=== PATIENT | female | born 1960 | race Caucasian/White ===

== ENCOUNTER 2019-03-21 07:56 | Outpatient (CLI) | payer OTHER, SELFPAY ==
--- NOTE | 2019-03-21 14:30 | DI.MAMMO_ITS ---
EXAM: MG MAMMO SCREENING CLINICAL HISTORY: screening mammogram,z12.31 TECHNIQUE: Bilateral full field digital CC and MLO mammographic images were obtained with 3D tomosyn thesis and utilizing computer aided detection (CAD). COMPARISON: Available for comparison. FINDINGS: Masses/Architectural Distortion: None seen. There is a biopsy clip again seen in the left breast. Microcalcifications: No suspicious pleomorphic-type are seen. Skin Thickening/Nipple Retraction: None. IMPRESSION: 1. No significant interval change with no specific features of malignancy noted. 2. Unless there is more urgent need, screening mammography is recommended, as per [place] guidelines. ACR BI-RAD Category- 1 Negative Breast Density - Category B - Scattered areas of fibroglandular density A negative radiographic report should not delay biopsy if a dominant or clinically suspicious mass is present. Up to ten percent of cancers are not identified on mammography. A negative report may reinforce clinical impression. Adenosis and dense breasts may obscure an underlying neoplasm. False positive reports average 6 to 10%. Patient will receive a letter notifying them of these results.
== END 2019-03-21 08:16 ==
PROVIDERS: PCP Family Medicine; Visit Provider Family Medicine
DX: Z12.31 Encounter for screening mammogram for malignant neoplasm of breast (principal)
CPT/HCPCS: 77063; 77067

== ENCOUNTER 2019-04-01 01:36 | Outpatient (CLI) | payer OTHER, SELFPAY ==
[2019-04-01 16:02] LABS: HCT 38.6 % (36.0-46.0); HGB 12.7 g/dL (12.0-15.5); Mean Corp. HGB Concentration 32.9 g/dL (32.0-36.0); Mean Corpuscular Hemoglobin 30.3 pg (27.0-33.0); Mean Corpuscular Volume 92.1 fL (80-95); Mean Platelet Volume 9.8 fL (8.0-11.0); Platelet Count 284 x1000/uL (130-400); RBC 4.19 m/cumm (4.00-5.20); RBC Distribution Width 12.5 % (11.7-14.6); White Blood Cell Count 5.42 k/cumm (4.4-10.8)
[2019-04-01 18:23] LABS: ALT 38 U/L (14-59); AST 35 U/L (15-37); Albumin 4.2 g/dL (3.4-5.0); Alkaline Phosphatase 79 U/L (46-116); Anion Gap 11.6 mmol/L (3-11); BUN 24 mg/dL (7-18); Bilirubin, Total 0.6 mg/dL (0.2-1.0); CO2 24.4 mmol/L (21.0-32.0); CREATININE 1.06 mg/dL (0.55-1.02); Calcium 8.8 mg/dL (8.5-10.1); Chloride 104 mmol/L (98-107); Estimated GFR 53.24 (mL/min/1.73m2); Glucose 94 mg/dL (74-106); Sodium 140 mmol/L (136-145)
== END 2019-04-01 01:56 ==
PROVIDERS: PCP Family Medicine; Visit Provider Family Medicine
DX: Z00.00 Encounter for general adult medical examination without abnormal findings (principal); Z13.0 Encounter for screening for diseases of the blood and blood-forming organs and certain disorders involving the immune mechanism; Z13.228 Encounter for screening for other metabolic disorders
CPT/HCPCS: 36415; 80053; 85027

== ENCOUNTER 2019-07-15 15:31 | Outpatient (REF) | payer OTHER, SELFPAY ==
--- NOTE | 2019-07-15 14:00 | PAPFT_PTH ---
PATIENT: Nhung Quezada LOC: [facility] U#:[id number] AGE/SX: 58/F ROOM: RE07/15/[address]: MARITA Hill : 1960 BED: DIS: 07/15/2019 SPEC #: [id number] RECD: 07/15/19 17:49 STATUS: RENARD REQ #: [id number] MARIANNE: 07/15/19 14:[address]: Gaby Aquino DEPT: [facility] Cytology RECD BY: Cesia Ervin ENTERED: 07/15/19 17:50 SP TYPE: PAPFT OTHR DR: Isael Isabel MD Tissues: 1 - CX/ENDOCX FOR PAP SMEARS Procedures: PAP THIN PREP/UVM Screening HPV DNA PROBE Comments: [id number]
== END 2019-07-15 15:51 ==
LOC: LBN 15:31
PROVIDERS: PCP Family Medicine; Visit Provider Nurse Practitioner Family
DX: Z12.4 Encounter for screening for malignant neoplasm of cervix (principal); Z11.51 Encounter for screening for human papillomavirus (HPV)
CPT/HCPCS: 88142; 87624

== ENCOUNTER 2020-08-10 01:21 | Outpatient (CLI) | payer OTHER, SELFPAY ==
--- NOTE | 2020-08-10 08:00 | DI.RAD_ITS ---
EXAM: XR FOOT LT COMPLETE CLINICAL HISTORY: Swelling left 1st MTP joint,PAIN LT GREAT TOE,M79.675 TECHNIQUE: COMPARISON: No exams were available for comparison FINDINGS: Three views of the foot were obtained. There is severe narrowing of the cartilaginous joint space of the 1st MTP joint with moderate subchondral sclerosis and prominent marginal osteophytes of the bone s at this site. Findings are consistent with degenerative change. Mild DJD of midfoot and IP joints also noted. There is a small osteophyte of the site of attachment of the plantar fascia on the calcaneus. 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 RADIATION DOSE DELIVERED: Total DLP
== END 2020-08-10 01:41 ==
PROVIDERS: PCP Family Medicine; Visit Provider Nurse Practitioner Family
DX: M79.675 Pain in left toe(s) (principal); M19.072 Primary osteoarthritis, left ankle and foot
CPT/HCPCS: 73630

== ENCOUNTER 2021-01-16 10:57 | Emergency (ER) | payer OTHER, SELFPAY ==
[2021-01-16 11:03] LABS: Source Nasal/Nares
--- NOTE | 2021-01-16 11:04 | NUR.NOTE ---
Nursing Note: Nurse only visit for covid testing before work
[2021-01-16 11:55] LABS: COVID-19 PCR Negative (Negative)
== END 2021-01-16 11:38 ==
LOC: ER 11:38
PROVIDERS: Emergency Provider Emergency Medicine; PCP Nurse Practitioner Family
DX: Z53.29 Procedure and treatment not carried out because of patient's decision for other reasons (principal); Z20.822 Contact with and (suspected) exposure to COVID-19
CPT/HCPCS: 87635

== ENCOUNTER 2021-03-05 18:20 | Emergency (ER) | payer OTHER, SELFPAY ==
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
[2021-03-05 18:21] VITALS: BP 115/69; PULSE 54; RESP 16; O2SAT 98
[2021-03-05] MEDS: Doxycycline Hyclate 100 MG, 2 CAPS/BTL PO (18:31)
== END 2021-03-05 18:40 | disposition home or self-care (01) ==
LOC: ER 18:37
PROVIDERS: Emergency Provider Emergency Medicine; PCP Nurse Practitioner Family
DX: S20.462A Insect bite (nonvenomous) of left back wall of thorax, initial encounter (principal); W57.XXXA Bitten or stung by nonvenomous insect and other nonvenomous arthropods, initial encounter
CPT/HCPCS: 99283

== ENCOUNTER 2021-05-16 16:40 | Outpatient (REF) | payer OTHER, SELFPAY ==
--- NOTE | 2021-05-16 13:00 | PAPFT_PTH ---
PATIENT: Nhung Quezada LOC: [facility] U#:[id number] AGE/SX: 60/F ROOM: RE05/16/[address]: MARITA Hill : 1960 BED: DIS: 05/16/2021 SPEC #: [id number] RECD: 05/16/21 17:36 STATUS: RENARD REQ #: [id number] MARIANNE: 05/16/21 13:[address]: Gaby Aquino DEPT: [facility] Cytology RECD BY: Cesia Ervin ENTERED: 05/16/21 17:37 SP TYPE: PAPFT OTHR DR: MARITA Kelly Tissues: 1 - CX/ENDOCX FOR PAP SMEARS Procedures: PAP THIN PREP/UVM Screening HPV DNA PROBE Comments: [id number]
== END 2021-05-16 16:41 | disposition home or self-care (01) ==
LOC: LBN 16:40
PROVIDERS: PCP Nurse Practitioner Family; Visit Provider Nurse Practitioner Family
DX: Z12.4 Encounter for screening for malignant neoplasm of cervix (principal); Z11.51 Encounter for screening for human papillomavirus (HPV)
CPT/HCPCS: 88142; 87624

== ENCOUNTER 2021-05-30 02:01 | Outpatient (CLI) | payer OTHER, SELFPAY ==
--- NOTE | 2021-05-30 15:31 | DI.MAMMO_ITS ---
Exam(s) MAMMO SCREENING EXAM: MAMMO SCREENING CLINICAL HISTORY: screening,z12.39. TECHNIQUE: Bilateral full field digital CC and MLO mammographic images were obtained with 3D tomosyn thesis and utilizing computer aided detection (CAD). COMPARISON: Prior mammograms were reviewed, the most recent being March 2019. FINDINGS: There are no new findings in the immediate vicinity of the biopsy marker clip in left breast. There are no new spiculated masses nor malignant appearing microcalcification groups. There is no significant architectural distortion nor skin thickening-retraction. IMPRESSION: No radiographic evidence of malignancy. BI-RADS Category 1 - Negative Breast Density - Category B - Scattered areas of fibroglandular density Breast density Category C or D implies that the patient has dense breast tissue. Dense breast tissue can make it harder to find cancer on a mammogram. Dense breast tissue is also associated with an incr eased risk of breast cancer. This information about the result of the mammogram report was provided to the patient to raise their awareness. Use this report when you speak with the patient about their risks for breast cancer, which includes their family history. At that time, you may recommend additional screening tests (Ultrasoun d or MRI) as these tests may add significant information. A negative radiographic report should not delay biopsy if a dominant or clinically suspicious mass is present. Up to ten percent of cancers are not identified on mammography. A negative report may reinforce clinical impression. Adenosis and dense breasts may obscure an underlying neoplasm. False positive reports average 6 to 10%. Patient will receive a letter notifying them of these results.
== END 2021-05-30 02:21 ==
PROVIDERS: PCP Nurse Practitioner Family; Visit Provider Nurse Practitioner Family
DX: Z12.31 Encounter for screening mammogram for malignant neoplasm of breast (principal)
CPT/HCPCS: 77063; 77067

== ENCOUNTER 2021-08-10 02:55 | Outpatient (CLI) | payer OTHER, SELFPAY ==
[2021-08-10 15:00] LABS: Hemoglobin A1C 5.4 % (<5.7)
[2021-08-10 16:03] LABS: Anion Gap 10.3 mmol/L (3-11); BUN 26 mg/dL (7-18); CO2 25.7 mmol/L (21.0-32.0); CREATININE 0.8 mg/dL (0.55-1.02); Calcium 9.1 mg/dL (8.5-10.1); Calculated LDL 57 mg/dL (<100); Chloride 105 mmol/L (98-107); Cholesterol 157 mg/dL (<200); Glucose 93 mg/dL (74-106); HDL Cholesterol 84 mg/dL (40-60); Potassium 4.1 mmol/L (3.5-5.1); Sodium 141 mmol/L (136-145); Triglyceride 84 mg/dL (<150)
== END 2021-08-10 02:56 | disposition home or self-care (01) ==
LOC: LBO 02:55
PROVIDERS: PCP Nurse Practitioner Family; Visit Provider Nurse Practitioner Family
DX: Z00.00 Encounter for general adult medical examination without abnormal findings (principal); Z13.1 Encounter for screening for diabetes mellitus; Z13.220 Encounter for screening for lipoid disorders
CPT/HCPCS: 36415; 80048; 80061; 83036

== ENCOUNTER 2022-01-17 18:57 | Outpatient (REF) | payer OTHER, SELFPAY ==
[2022-01-17 20:41] LABS: Bilirubin Negative (Negative); Blood Negative (Negative); Clarity Sl Cloudy (Clear); Glucose Negative (Negative); Ketones Negative (Negative); Leukocyte Esterase Trace (Negative); Nitrite Negative (Negative); Specific Gravity 1.015 (1.005-1.025); Urobilinogen 0.2 EU/dL (Up TO 0.2)
[2022-01-17 20:56] LABS: Bacteria Rare HPF (Negative); Epithelial Cells Rare HPF (Negative); RBC 0-2 HPF (0-2)
[2022-01-17 20:57] LABS: C & S Indicated? Yes; Casts Negative LPF (Negative); Crystals Negative HPF (Negative); Mucus Negative (Negative)
== END 2022-01-17 18:58 | disposition home or self-care (01) ==
LOC: LBN 18:57
PROVIDERS: PCP Nurse Practitioner Family; Visit Provider Nurse Practitioner Family
DX: R39.9 Unspecified symptoms and signs involving the genitourinary system (principal)
CPT/HCPCS: 87077; 81003; 81015; 87086; 87186

== ENCOUNTER 2022-09-04 04:34 | Outpatient (CLI) | payer MEDICAID, SELFPAY ==
[2022-09-04 07:24] LABS: HGB 13.3 g/dL (11.2-15.7); MCH 30.9 pg (27.0-33.0); MCHC 33.3 % (32.0-36.0); MCV 93 fL (80-95); MPV 9.8 fL (8.0-11.0); Platelet Count 265 10^3/uL (130-400); RDW 12.6 % (11.7-14.6); RDW-SD 43.4 fL; WBC 4.54 10^3/uL (4.4-10.8)
[2022-09-04 07:58] LABS: Anion Gap 5.1 mmol/L (3-11); BUN 20 mg/dL (7-18); CO2 27.9 mmol/L (21.0-32.0); CREATININE 0.9 mg/dL (0.55-1.02); Calcium 8.9 mg/dL (8.5-10.1); Chloride 111 mmol/L (98-107); Estimated GFR 72.28 (mL/min/1.73m2); Glucose 111 mg/dL (74-106); Potassium 4.5 mmol/L (3.5-5.1); Sodium 144 mmol/L (136-145); TSH (W/Ref FT4) 1.63 uIU/mL (0.36-3.74)
== END 2022-09-04 04:35 | disposition home or self-care (01) ==
LOC: LBO 04:34
PROVIDERS: PCP Nurse Practitioner Family; Visit Provider Nurse Practitioner Family
DX: R06.00 Dyspnea, unspecified (principal)
CPT/HCPCS: 36415; 80048; 85027; 84443

== ENCOUNTER 2022-09-06 01:50 | Outpatient (CLI) | payer MEDICAID, SELFPAY ==
--- NOTE | 2022-09-06 06:45 | DI.MAMMO_ITS ---
Exam(s) MAMMO SCREENING EXAM: MAMMO SCREENING CLINICAL HISTORY: screening,z12.39 TECHNIQUE: Bilateral full field digital CC and MLO mammographic images were obtained with 3D tomosyn thesis and utilizing computer aided detection (CAD). COMPARISON: Available for comparison. FINDINGS: Masses/Architectural Distortion: None seen. There is a biopsy clip seen in the left breast. Microcalcifications: No suspicious pleomorphic-type are seen. Skin Thickening/Nipple Retraction: None. IMPRESSION: 1. No significant interval change with no specific features of malignancy noted. 2. Unless there is more urgent need, screening mammography is recommended, as per [employer] guidelines. BI-RADS Category 1 - Negative Breast Density - Category B - Scattered areas of fibroglandular density Breast density category C or D implies that the patient has dense breast tissue. Dense breast tissue is very common and is not abnormal but dense breast tissue can make it harder to find cancer on a ma mmogram. Also, dense breast tissue may increase their breast cancer risk. This information about the result of the mammogram report was provided to the patient to raise their awareness. Use this report when you speak with the patient about their risks for breast cancer, which includes their family hist ory. At that time, you may recommend for more screening tests (Ultrasound or MRI) as they might be us eful based on their risk. A negative radiographic report should not delay biopsy if a dominant or clinically suspicious mass is present. Up to ten percent of cancers are not identified on mammography. A negative report may reinforce clinical impression. Adenosis and dense breasts may obscure an underlying neoplasm. False positive reports average 6 to 10%. Patient will receive a letter notifying them of these results.
== END 2022-09-06 02:10 ==
LOC: DI 01:51
PROVIDERS: PCP Nurse Practitioner Family; Visit Provider Nurse Practitioner Family
DX: Z12.31 Encounter for screening mammogram for malignant neoplasm of breast (principal)
CPT/HCPCS: 77063; 77067

== ENCOUNTER 2023-01-22 04:47 | Outpatient (CLI) | payer MEDICAID, SELFPAY ==
[2023-01-22] MEDS: Levalbuterol HFA 15 GM INH 4 PUFF IH (17:10)
[2023-01-22] MEDS: Inhaler, Assist Device 1 EACH MC (17:11)
--- NOTE | 2023-01-23 16:42 | W.PFT ---
Date of service: 01/22/23 Time of Service: 14:54 Pulmonary Function Test Result Indications: Dyspnea on exertion Interpretation Spirometry: There is no airflow limitation. There is no bronchodilator response. Lung Volumes: Normal lung volumes Diffusion Capacity: Normal diffusion Airway Pressure: Normal airways resistance Impression Normal pulmonary function testing Clinical Correlation therefore is recommended.
== END 2023-01-22 04:48 | disposition home or self-care (01) ==
LOC: RT 04:47
PROVIDERS: PCP Student in an Organized Health Care Education/Training Program; Visit Provider Nurse Practitioner Family
DX: R06.09 Other forms of dyspnea (principal)
CPT/HCPCS: 94060; 94726; 94729

== ENCOUNTER → 2023-12-12 02:05 | Outpatient (CLI) | payer MEDICAID, SELFPAY ==
--- NOTE | 2023-12-12 15:00 | DI.MAMMO_ITS ---
Exam(s) MAMMO SCREENING EXAM: MAMMO SCREENING CLINICAL HISTORY: screening. TECHNIQUE: Bilateral full field digital CC and MLO mammographic images were obtained with 3D tomosyn thesis and utilizing computer aided detection (CAD). COMPARISON: Prior mammograms were reviewed. FINDINGS: There has been no significant change in the appearance and distribution of the fibroglandular tissue. No new findings in the immediate vicinity of a biopsy marker clip in the left breast, slightly latera l of center. There are no new spiculated masses nor malignant appearing microcalcification groups. There is no significant architectural distortion nor skin thickening-retraction. IMPRESSION: No radiographic evidence of malignancy. BI-RADS Category 1 - Negative Breast Density - Category B - Scattered areas of fibroglandular density Breast density Category C or D implies that the patient has dense breast tissue. Dense breast tissue can make it harder to find cancer on a mammogram. Dense breast tissue is also associated with an incr eased risk of breast cancer. This information about the result of the mammogram report was provided to the patient to raise their awareness. Use this report when you speak with the patient about their risks for breast cancer, which includes their family history. At that time, you may recommend additional screening tests (Ultrasoun d or MRI) as these tests may add significant information. A negative radiographic report should not delay biopsy if a dominant or clinically suspicious mass is present. Up to ten percent of cancers are not identified on mammography. A negative report may reinforce clinical impression. Adenosis and dense breasts may obscure an underlying neoplasm. False positive reports average 6 to 10%. Patient will receive a letter notifying them of these results.
== END ==
PROVIDERS: PCP Nurse Practitioner Family; Visit Provider Nurse Practitioner Women's Health
DX: Z12.39 Encounter for other screening for malignant neoplasm of breast (principal); Z12.31 Encounter for screening mammogram for malignant neoplasm of breast
CPT/HCPCS: 77063; 77067

== ENCOUNTER 2024-03-12 03:40 | Outpatient (CLI) | payer MEDICAID, SELFPAY ==
[2024-03-12 10:14] LABS: Anion Gap 9.3 mmol/L (3-11); BUN 25 mg/dL (7-18); CO2 25.7 mmol/L (21.0-32.0); CREATININE 0.9 mg/dL (0.55-1.02); Chloride 109 mmol/L (98-107); Estimated GFR 71.83 (mL/min/1.73m2); Glucose 109 mg/dL (74-106); Potassium 4.3 mmol/L (3.5-5.1); Sodium 144 mmol/L (136-145)
[2024-03-12 19:12] LABS: HIV-1/2 Ag & Ab Screen Negative (Negative)
[2024-03-12 19:19] LABS: Hepatitis C Ab w Rflx HCV PCR Negative (Negative)
[2024-03-12 19:33] LABS: HBs Antibody, Quant 11.5 mIU/mL (See Note); Hep B Surface Ab Positive (See Note); Hepatitis B Core Antibody Negative (Negative); Hepatitis B Surface Antigen Negative (Negative)
== END 2024-03-12 03:41 | disposition home or self-care (01) ==
PROVIDERS: PCP Nurse Practitioner Family; Visit Provider Nurse Practitioner Family
DX: Z11.4 Encounter for screening for human immunodeficiency virus [HIV] (principal); Z00.00 Encounter for general adult medical examination without abnormal findings; Z11.59 Encounter for screening for other viral diseases; W57.XXXA Bitten or stung by nonvenomous insect and other nonvenomous arthropods, initial encounter
CPT/HCPCS: 36415; 80048; 86704; 86706; 86803; 87340; 87389

== ENCOUNTER 2024-07-01 02:44 | Outpatient (CLI) | payer BC, SELFPAY ==
[2024-07-02 10:31] LABS: Lyme Ab w Rflx to Lyme Confirm Negative (Negative)
[2024-07-03 23:38] LABS: Anaplasma phagocytophilum Negative (Negative); B. miyamotoi PCR Negative (Negative); Babesia divergens/MO-1 Negative (Negative); Babesia duncani Negative (Negative); Babesia microti Negative (Negative); Ehrlichia chaffeensis Negative (Negative); Ehrlichia ewingii/canis Negative (Negative); Ehrlichia muris eauclairensis Negative (Negative)
== END 2024-07-01 02:45 | disposition home or self-care (01) ==
LOC: LOS 02:44
PROVIDERS: PCP Nurse Practitioner Family; Visit Provider Nurse Practitioner Family
DX: S30.861A Insect bite (nonvenomous) of abdominal wall, initial encounter (principal)
CPT/HCPCS: 36415; 87798; 86618

== ENCOUNTER 2024-12-30 11:42 | Outpatient (REF) | payer BC, SELFPAY ==
--- NOTE | 2024-12-30 11:15 | PAPFT_PTH ---
PATIENT: Nhung Quezada LOC: [facility] U#:[id number] AGE/SX: 64/F ROOM: RE12/30/[address]: Keila Hamilton NP : 1960 BED: DIS: 12/30/2024 SPEC #: [id number] RECD: 12/30/24 12:51 STATUS: PEACEStu JUSTIN #: [id number] MARIANNE: 12/30/24 11:[address]: Alfonso CARLSON,Keila DEPT: [facility] Cytology RECD BY: Cesia Ervin ENTERED: 12/30/24 12:51 SP TYPE: PAPFT OTHR DR: Camilla Lopez, [employer] Tissues: 1 - CX/ENDOCX FOR PAP SMEARS Procedures: PAP THIN PREP/UVM Screening HPV DNA PROBE Comments: [id number] (HPV 16 & 18/45)
== END 2024-12-30 11:43 | disposition home or self-care (01) ==
LOC: LBN 11:42
PROVIDERS: PCP Nurse Practitioner Family; Visit Provider Nurse Practitioner Women's Health
DX: Z12.4 Encounter for screening for malignant neoplasm of cervix (principal)
CPT/HCPCS: 88142; 87624

== ENCOUNTER 2025-01-13 08:16 | Outpatient (CLI) | payer BC, SELFPAY ==
--- NOTE | 2025-01-13 09:54 | DI.MAMMO_ITS ---
Exam(s) MAMMO SCREENING EXAM: MAMMO SCREENING CLINICAL HISTORY: screening,z12.39. TECHNIQUE: Bilateral full field digital CC and MLO mammographic images were obtained with 3D tomosynthesis and utilizing computer aided detection (CAD). COMPARISON: Prior mammograms were reviewed. FINDINGS: There has been no significant change in the appearance and distribution of the fibroglandular tissue. No CAD designations. There are no new findings in the immediate vicinity of a biopsy marker clip in the left breast There are no new spiculated masses nor malignant appearing microcalcification groups. There is no significant architectural distortion nor skin thickening-retraction. IMPRESSION: No radiographic evidence of malignancy. BI-RADS Category 1 - Negative Breast Density - Category B - There are scattered areas of fibroglandular density. Breast density Category C or D implies that the patient has dense breast tissue. Dense breast tissue can make it harder to find cancer on a mammogram. Dense breast tissue is also associated with an increased risk of breast cancer. This information about the result of the mammogram report was provided to the patient to raise their awareness. Use this report when you speak with the patient about their risks for breast cancer, which includes their family history. At that time, you may recommend additional screening tests (Ultrasound or MRI) as these tests may add significant information. A negative radiographic report should not delay biopsy if a dominant or clinically suspicious mass is present. Up to ten percent of cancers are not identified on mammography. A negative report may reinforce clinical impression. Adenosis and dense breasts may obscure an underlying neoplasm. False positive reports average 6 to 10%. Patient will receive a letter notifying them of these results.
== END 2025-01-13 08:36 ==
PROVIDERS: PCP Nurse Practitioner Family; Visit Provider Nurse Practitioner Family
DX: Z12.31 Encounter for screening mammogram for malignant neoplasm of breast (principal); R92.323 Mammographic fibroglandular density, bilateral breasts
CPT/HCPCS: 77063; 77067

== ENCOUNTER → 2025-04-28 00:46 | Outpatient (CLI) | payer BC, SELFPAY ==
--- NOTE | 2025-04-28 06:30 | DI.RAD_ITS ---
Exam(s) XR KNEE RT 3V AP,LAT,GARTH EXAM: XR KNEE RT 3V AP,LAT,GARTH CLINICAL HISTORY: knee pain,rt,m25.561. TECHNIQUE: 2D digital imaging was performed. COMPARISON: CR XR KNEE LT 3V AP,LAT,GARTH from 04/28/2025 FINDINGS: 3 views No evidence of fracture but there does appear to be probable joint effusion. There is no significant joint space narrowing. No osteophytes. No chondrocalcinosis. Bone density is age-appropriate. IMPRESSION: No acute osseous findings. Probable small joint effusion. DATA REPOSITORY: RADIATION DOSE DELIVERED:
--- NOTE | 2025-04-28 06:30 | DI.RAD_ITS ---
Exam(s) XR KNEE LT 3V AP,LAT,GARTH EXAM: XR KNEE LT 3V AP,LAT,GARTH CLINICAL HISTORY: knee pain,lt,m25.562. TECHNIQUE: 2D digital imaging was performed. COMPARISON: CR LEFT KNEE COMPLETE from 05/21/2007 FINDINGS: 3 views No evidence of fracture but there appears to be a small joint effusion. There are mild degenerative changes in the medial compartment. Lateral compartment appears unremarkable. Bone density normal. No osseous lesions. IMPRESSION: Mild degenerative changes. Small joint effusion. DATA REPOSITORY: RADIATION DOSE DELIVERED:
== END ==
LOC: DI 00:46
PROVIDERS: PCP Nurse Practitioner Family; Visit Provider Nurse Practitioner Family
DX: M25.561 Pain in right knee (principal); M25.562 Pain in left knee; M25.461 Effusion, right knee
CPT/HCPCS: 73562